=== PATIENT | male | born 1975 | race African-American/Black ===

== ENCOUNTER 2017-05-07 15:53 | Emergency (ER) | payer MEDICAID ==
[~2017-05-07] VITALS: Ht 175.3 cm; Wt 101.7 kg
[~2017-05-07 15:53] MED LIST: ALBU0.63; ALBU18HF INH; ALBU8.5H3; ALBU8.5H3 INH; ALBU90AE INH; AZIT500T77 PO; FLUT1DIS IH; METH4TAB2 PO; TIOT18CA INH
[2017-05-07 16:01] VITALS: BP 115/70
== END 2017-05-07 16:38 ==
LOC: ED 16:32
DX: J45.40 Moderate persistent asthma, uncomplicated (principal); Z76.0 Encounter for issue of repeat prescription
CPT/HCPCS: 93005; 99283

== ENCOUNTER 2017-11-06 19:12 | Inpatient (IN) | payer MEDICAID, OTHER ==
[~2017-11-06] VITALS: Ht 175.3 cm; Wt 95.6 kg
[~2017-11-06 19:12] MED LIST changes: -ALBU8.5H3; -ALBU8.5H3 INH; +ALBU8.5H8; +ALBU8.5H8 INH; +AZIT500T5 PO; -AZIT500T77 PO
[2017-11-06] MEDS ORDERED: ALBUTEROL SULFATE 2.5 MG/3 ML ONE (19:50)
[2017-11-06] MEDS ORDERED: ALBUTEROL/IPRATROPIUM 2.5MG/0.5MG, 3 ML ONE ×2 (19:57→22:46)
[2017-11-06] MEDS ORDERED: ALBUTEROL/IPRATROPIUM 2.5MG/0.5MG, 3 ML NEB ONE (20:00)
[2017-11-06] MEDS ORDERED: ALBUTEROL SULFATE 2.5 MG/3 ML NPPB ONE ×2 (20:00→22:30)
[2017-11-06 20:22] LABS: HEMATOCRIT 50.2 % (39.2-51.8); HEMOGLOBIN 16.5 g/dL (13.7-18.0); WHITE BLOOD COUNT 7.8 x10^3/uL (3.4-10)
[2017-11-06] MEDS ORDERED: ALBUTEROL SULFATE 2.5MG/0.5ML ONE (20:26)
[2017-11-06] MEDS ORDERED: SODIUM CHLORIDE 0.9% 1,000ML IVBOLUS ONE (20:30)
[2017-11-06] MEDS ORDERED: MAGNESIUM SULFATE PMX 2GM/50ML 50 ML IV ONE (20:30)
[2017-11-06] MEDS ORDERED: ALBUTEROL 0.5%, 20ML NPPB SCH (20:30)
[2017-11-06 20:34] LABS: BLOOD UREA NITROGEN 11 mg/dL (7-18)
[2017-11-06 20:52] LABS: ABG COLLECTION SITE RIGHT BRACHIAL
[2017-11-06] MEDS ORDERED: ALBUTEROL/IPRATROPIUM 2.5MG/0.5MG, 3 ML NPPB ONE (22:30)
[2017-11-06] MEDS ORDERED: ONDANSETRON ODT 4 MG PO PRN (23:00)
[2017-11-06] MEDS ORDERED: ACETAMINOPHEN 325 MG TABLET PO PRN (23:00)
[2017-11-07] MEDS: SODIUM CHLORIDE 0.9% 1,000 ML IV SCH ×2 (00:05→08:37)
[2017-11-07 00:58] VITALS: BP 137/90
[2017-11-07] MEDS ORDERED: ALBUTEROL/IPRATROPIUM 2.5MG/0.5MG, 3 ML NPPB PRN (02:30)
[2017-11-07] MEDS: ALBUTEROL/IPRATROPIUM 2.5MG/0.5MG, 3 ML NPPB SCH ×7 (02:30→22:30)
[2017-11-07 04:49] LABS: HEMOGLOBIN 15.5 g/dL (13.7-18.0)
[2017-11-07 04:50] LABS: BLOOD UREA NITROGEN 9 mg/dL (7-18)
[2017-11-07 04:59] LABS: ASPARTATE AMINO TRANSFERASE 25 U/L (15-37)
[2017-11-07 05:00] VITALS: BP 132/88
[2017-11-07 05:53] LABS: ABG COLLECTION SITE LEFT RADIAL; COLLATERAL CIRCULATION TESTING NORMAL
[2017-11-07] MEDS: methylPREDNISolone SOD SUCC 125 MG/2 ML IV SCH ×5 (05:55→23:40)
[2017-11-07] MEDS ORDERED: SODIUM PHOSPHATE 20 MMOL in SODIUM CHLORIDE 0.9% 500 ML IV ONE (08:00)
[2017-11-07] MEDS ORDERED: SODIUM CHLORIDE 0.9% 1,000 ML IV SCH (09:30)
[2017-11-07] MEDS ORDERED: ALBUTEROL SULFATE 2.5 MG/3 ML ONE (12:43)
[2017-11-07] MEDS ORDERED: ALBUTEROL 0.5%, 20ML NPPBCONT PRN (13:00)
[2017-11-08] MEDS: ALBUTEROL/IPRATROPIUM 2.5MG/0.5MG, 3 ML NPPB SCH ×7 (02:35→23:00)
[2017-11-08 05:00] VITALS: BP 143/83
[2017-11-08] MEDS: methylPREDNISolone SOD SUCC 125 MG/2 ML IV SCH ×3 (06:22→18:07)
[2017-11-08] MEDS: FLUTICASONE/VILANTEROL 200-25MCG/INH INH SCH (11:37)
[2017-11-09] MEDS: methylPREDNISolone SOD SUCC 125 MG/2 ML IV SCH ×2 (00:26→05:56)
[2017-11-09] MEDS: ALBUTEROL/IPRATROPIUM 2.5MG/0.5MG, 3 ML NPPB SCH ×6 (02:30→19:28)
[2017-11-09 04:00] VITALS: BP 129/74
[2017-11-09] MEDS: FLUTICASONE/VILANTEROL 200-25MCG/INH INH SCH (07:42)
[2017-11-09 15:18] VITALS: BP 107/74
[2017-11-09 19:18] VITALS: BP 126/78
[2017-11-10 01:50] VITALS: BP 118/72
[2017-11-10] MEDS: ALBUTEROL/IPRATROPIUM 2.5MG/0.5MG, 3 ML NPPB SCH ×3 (03:14→10:35)
[2017-11-10 06:46] VITALS: BP 125/71
[2017-11-10] MEDS ORDERED: FLUT1BLS INH (10:42)
[2017-11-10] MEDS ORDERED: METH4TAB2 PO (10:42)
[2017-11-10] MEDS ORDERED: ALBU8.5H8 INH (10:42)
[2017-11-10] MEDS ORDERED: PNEUMOCOCCAL 23 VACCINE IM-VACC ONE (11:30)
[2017-11-10] MEDS ORDERED: FLU VACC QS2017-18 (36MOS+) UP/PF 0.5 ML IM-VACC ONE (11:30)
[2017-11-10] MEDS: FLUTICASONE/VILANTEROL 200-25MCG/INH INH SCH (12:50)
[2017-11-10 13:16] VITALS: BP 135/83
== END 2017-11-10 17:20 | disposition home or self-care (01) | DRG 189 ==
LOC: ED 21:10 → EDIP 21:15 → ED 21:32 → ICU 23:29 → 3NW 11-09 13:10
PROVIDERS: ADMIT Surgery; ATTEND Hospitalist
PROC: 5A09357 Assistance with Respiratory Ventilation, Less than 24 Consecutive Hours, Continuous Positive Airway Pressure (ICD-10-PCS; principal; 2017-11-06)
PROC: 5A09357 Assistance with Respiratory Ventilation, Less than 24 Consecutive Hours, Continuous Positive Airway Pressure (ICD-10-PCS; 2017-11-07)
PROC: 5A09357 Assistance with Respiratory Ventilation, Less than 24 Consecutive Hours, Continuous Positive Airway Pressure (ICD-10-PCS; 2017-11-08)
DX: J96.01 Acute respiratory failure with hypoxia (principal); J45.32 Mild persistent asthma with status asthmaticus; E73.9 Lactose intolerance, unspecified; Z83.3 Family history of diabetes mellitus; Z91.14 Patient's other noncompliance with medication regimen; Z23 Encounter for immunization
CPT/HCPCS: 36415; 36600; 71010; 80048; 80053; 80061; 82040; 82803; 83036; 83735; 84100; 84443; 85025; 87081; 90686; 90732; 93005; 94640; 94644; 94660; 96365; J7611; J7613; J7620; J2930; J3475; J7030; J7040; J7512

== ENCOUNTER 2020-07-30 20:36 | Emergency (ER) | payer MEDICAID, OTHER ==
[~2020-07-30] VITALS: Ht 175.3 cm; Wt 98.1 kg
[~2020-07-30 20:36] MED LIST changes: +AZIT500T10 PO; -AZIT500T5 PO; +FLUT1BLS INH
[2020-07-30 20:42] VITALS: BP 137/81
--- NOTE | 2020-07-30 21:01 | NUR ---
PT D/C FROM [facility] WITH PRESCRIPTIONS AND D/C SUMMARY. ALL QUESTIONS ANSWERED. PT AMBUL[place] WITH STEADY GAIT FOR D/C HOME. PT DENIES ANY OTHER NEEDS PERTAINING TO THIS VISIT.
== END 2020-07-30 21:04 | disposition home or self-care (01) ==
LOC: ED 20:52
DX: J45.30 Mild persistent asthma, uncomplicated (principal); Z76.0 Encounter for issue of repeat prescription
CPT/HCPCS: 99281

== ENCOUNTER 2020-11-19 12:46 | Emergency (ER) | payer OTHER ==
[~2020-11-19] VITALS: Ht 177.8 cm; Wt 99.6 kg
--- NOTE | 2020-11-19 13:00 | NUR ---
FIELD RADIO TECHNICIAN: PT DECLINING CCOLLAR.
[2020-11-19 14:09] VITALS: BP 139/97
== END 2020-11-19 14:12 | disposition home or self-care (01) ==
LOC: ED 13:59
DX: M54.2 Cervicalgia (principal); J45.909 Unspecified asthma, uncomplicated
CPT/HCPCS: 72050; 99283

== ENCOUNTER 2020-11-24 11:17 | Emergency (ER) | payer OTHER ==
[~2020-11-24] VITALS: Ht 177.8 cm; Wt 102.9 kg
[2020-11-24 11:40] VITALS: BP 126/80
== END 2020-11-24 13:55 | disposition home or self-care (01) ==
LOC: ED 11:46
DX: J45.909 Unspecified asthma, uncomplicated (principal); Z76.0 Encounter for issue of repeat prescription; R94.31 Abnormal electrocardiogram [ECG] [EKG]
CPT/HCPCS: 93005; 99283

== ENCOUNTER 2021-05-31 16:26 | Emergency (ER) | payer MEDICAID, OTHER ==
[~2021-05-31] VITALS: Ht 175.3 cm; Wt 98.5 kg
[2021-05-31 16:36] VITALS: BP 118/88
--- NOTE | 2021-05-31 16:49 | NUR ---
pt needs asthma rx, has new insurance. denies sob/cp.
--- NOTE | 2021-05-31 17:35 | NUR ---
ambulatory to discharge with steady gait.
== END 2021-05-31 17:37 | disposition home or self-care (01) ==
LOC: ED 17:20
DX: J45.40 Moderate persistent asthma, uncomplicated (principal); Z76.0 Encounter for issue of repeat prescription
CPT/HCPCS: 99281

== ENCOUNTER 2021-07-18 13:33 | Emergency (ER) | payer MEDICAID ==
[~2021-07-18] VITALS: Ht 175.3 cm; Wt 75.1 kg
[2021-07-18 14:31] VITALS: BP 121/78
[2021-07-18] MEDS ORDERED: DEXAMETHASONE 4 MG/ML, 1ML ONE (14:50)
[2021-07-18] MEDS ORDERED: DEXAMETHASONE 4 MG/ML, 1ML PO ONE (15:00)
== END 2021-07-18 17:11 | disposition home or self-care (01) ==
LOC: ED 17:07
DX: J02.9 Acute pharyngitis, unspecified (principal); R06.02 Shortness of breath; Z20.822 Contact with and (suspected) exposure to COVID-19; J45.909 Unspecified asthma, uncomplicated
CPT/HCPCS: 71045; 87081; 87880; 99284; J1100; U0003; U0005

== ENCOUNTER 2021-07-20 00:21 | Emergency (ER) | payer MEDICAID ==
[~2021-07-20] VITALS: Ht 175.3 cm; Wt 98.4 kg
[2021-07-20 01:13] LABS: BASOPHILS % (AUTO) 0 % (0-1); EOSINOPHILS % (AUTO) 1 % (1-7); LYMPHOCYTES % (AUTO) 18 % (22-44); MEAN CORPUSCULAR HEMOGLOBIN 28.4 pg (27.5-34.5); MEAN CORPUSCULAR HGB CONC 33.1 g/dL (33.2-36.2); MEAN PLATELET VOLUME 7.4 fL (7.4-10.4); MONOCYTES % (AUTO) 14 % (2-9); NEUTROPHILS % (AUTO) 67 % (42-75); PLATELET COUNT 247 x10^3/uL (130-400); RED BLOOD COUNT 4.86 x10^6/uL (4.38-5.82); RED CELL DISTRIBUTION WIDTH 14.8 % (9.4-14.8)
[2021-07-20 01:23] LABS: ALBUMIN 2.9 g/dL (3.4-5.0); ANION GAP 5 mmol/L (5-15); CALCIUM 8.9 mg/dL (8.5-10.1); CHLORIDE 103 mmol/L (98-107)
[2021-07-20 01:28] LABS: TROPONIN I < 0.015 ng/mL (0.000-0.045)
[2021-07-20 02:15] VITALS: BP 115/95
== END 2021-07-20 02:19 | disposition home or self-care (01) ==
LOC: ED 02:16
DX: R19.7 Diarrhea, unspecified (principal); R07.89 Other chest pain; J02.9 Acute pharyngitis, unspecified; J45.909 Unspecified asthma, uncomplicated
CPT/HCPCS: 36415; 71045; 80048; 82040; 84484; 85025; 93005; 99285